=== PATIENT | male | born 1965 | race Caucasian/White ===

== ENCOUNTER 2016-09-11 23:50 | Emergency (ER) | payer BC, OTHER ==
[~2016-09-11] VITALS: Ht 172.7 cm; Wt 93.0 kg
[~2016-09-11 23:50] MED LIST: ACETAMINOPHEN325 M1 PO; BACTRIM DS TAB1 EACH PO; ERYTHROMYCIN E3.5 G1 OP; IBUPROFEN 200200 M1 PO; IBUPROFEN 600600 M1 PO; NOHOMEMEDICATIONS; NORCO 5-325 TA1 EACH PO; PHENERGAN 25 MG25 M1 PO; PREDNISONE 20 M20 MG PO; TYLENOL325 MG
[2016-09-12] MEDS ORDERED: NAPROSYN500 MG PO (00:26)
== END 2016-09-12 00:52 | disposition home or self-care (01) ==
LOC: ER 23:50
DX: M70.21 Olecranon bursitis, right elbow (principal); F10.99 Alcohol use, unspecified with unspecified alcohol-induced disorder; F17.210 Nicotine dependence, cigarettes, uncomplicated; Z98.890 Other specified postprocedural states; Z91.030 Bee allergy status; Y93.89 Activity, other specified

== ENCOUNTER 2016-11-08 22:44 | Emergency (ER) | payer BC, OTHER ==
[~2016-11-08] VITALS: Ht 172.7 cm; Wt 95.3 kg
[~2016-11-08 22:44] MED LIST changes: +NAPROSYN500 MG PO
[2016-11-09] MEDS ORDERED: MOBIC15 MG PO (00:10)
[2016-11-09] MEDS ORDERED: NORCO 5-325 TA1 EACH PO (00:10)
== END 2016-11-09 00:40 | disposition home or self-care (01) ==
LOC: ER 22:44
DX: S93.402A Sprain of unspecified ligament of left ankle, initial encounter (principal); F17.210 Nicotine dependence, cigarettes, uncomplicated; F10.99 Alcohol use, unspecified with unspecified alcohol-induced disorder; Z98.890 Other specified postprocedural states; Z91.030 Bee allergy status; W01.0XXA Fall on same level from slipping, tripping and stumbling without subsequent striking against object, initial encounter; Y93.89 Activity, other specified; Y92.89 Other specified places as the place of occurrence of the external cause; Y99.8 Other external cause status

== ENCOUNTER 2017-01-19 22:17 | Emergency (ER) | payer BC, OTHER ==
[~2017-01-19] VITALS: Ht 172.7 cm; Wt 92.1 kg
--- NOTE | ~2017-01-19 | EKG ---
[address] [address] ELECTROCARDIOGRAM REPORT Name: MAURILIO EM [facility] [id number] Admission: 01/19/17 Attend Phys: Discharge: 01/20/17 Date of : 65 Report #: [id number] THIS REPORT FOR: //name// [facility] ED Test Date: 2017-01-20 Test Time: 01:21:27 Pat Name: MAURILIO EM Department: Room: Gender: M Pharmacy Data Analyst: : 1965 Requested By: Eugene Cantu Order Number: [id number] MD: Elmer Hollins Measurements Intervals [place] Rate: 62 P: 28 [place]: 160 QRS: 22 QRSD: 84 T: 43 QT: 407 QTc: 414 Interpretive Statements Sinus rhythm Probable left atrial enlargement No previous ECG available for comparison Electronically Signed On 01-20-2017 15:20:39 CDT by Elmer Hollins [email or web address] <ELECTRONICALLY SIGNED> By: Elmer Hollins MD 01/20/17 1520 0121 0121 Elmer Hollins MD /SYLWIA
[~2017-01-19 22:17] MED LIST changes: +MOBIC15 MG PO
[2017-01-19 23:26] LABS: ABSOLUTE NEUTROPHILS 6.3 thou/uL (1.4-8.2); BASOPHILS 0.8 % (0.0-2.0); EOSINOPHILS 4.8 % (0.0-3.0); HEMATOCRIT 42.5 % (42.0-52.0); HEMOGLOBIN 14.6 gm/dL (14.0-18.0); LYMPHOCYTES 30.3 % (24.0-44.0); MCHC 34.3 g/dL (28.0-37.0); MCV 87.6 fL (80.0-100.0); MONOCYTES 6.1 % (1.0-8.0); PLATELET COUNT 194 thou/uL (150-400); RBC 4.85 mil/uL (4.50-6.00); RDW 13.9 % (10.5-14.5); WBC 10.8 thou/uL (4.0-11.0)
[2017-01-19 23:31] LABS: ANION GAP 9 mmol/L (7-16); BUN 7 mg/dL (7-18); CALCIUM 8.6 mg/dL (8.5-10.1); CHLORIDE 104 mmol/L (98-107); CO2 27 mmol/L (21-32); CREATININE 0.9 mg/dL (0.7-1.3); GLUCOSE 106 mg/dL (74-106); POTASSIUM 3.7 mmol/L (3.5-5.1); SODIUM 140 mmol/L (136-145)
[2017-01-19 23:35] LABS: MANUAL DIFF NO
[2017-01-19 23:40] LABS: ALBUMIN 2.9 g/dL (3.4-5.0); ALKALINE PHOSPHATASE 62 U/L (46-116); SGOT 15 U/L (15-37); SGPT 18 U/L (30-65); TOTAL BILIRUBIN 0.3 mg/dL (<0.1-1.0); TOTAL PROTEIN 5.7 g/dL (6.4-8.2); TROPONIN-I < 0.04 ng/mL (<0.04-0.07)
[2017-01-20] MEDS ORDERED: ZOFRAN ODT8 MG PO (01:02)
[2017-01-20] MEDS ORDERED: TRAMADOL 50 MG50 MG PO (01:02)
[2017-01-20] MEDS ORDERED: PRILOSEC 20 MG20 MG PO (01:17)
[2017-01-20 01:29] LABS: URINE BILIRUBIN NEGATIVE (Negative); URINE BLOOD 2+ (Negative); URINE COLOR YELLOW; URINE GLUCOSE-RANDOM* NEGATIVE (Negative); URINE KETONES NEGATIVE (Negative); URINE LEUKOCYTES-REFLEX NEGATIVE (Negative); URINE PROTEIN (DIPSTICK) NEGATIVE (Negative)
[2017-01-20 02:00] LABS: CASTS None Seen /LPF (None Seen); CRYSTALS None Seen /LPF (None Seen); SQUAMOUS None Seen /LPF (0-3); URINE RBC 0-2 Rare /HPF (0-2); URINE WBC-REFLEX None Seen /HPF (0-5)
== END 2017-01-20 01:48 | disposition home or self-care (01) ==
LOC: ER 22:17
PROVIDERS: Emergency Medicine
DX: N20.0 Calculus of kidney (principal); R91.1 Solitary pulmonary nodule; R19.7 Diarrhea, unspecified; F17.210 Nicotine dependence, cigarettes, uncomplicated; F10.99 Alcohol use, unspecified with unspecified alcohol-induced disorder; Z98.890 Other specified postprocedural states; Z91.030 Bee allergy status

== ENCOUNTER 2017-06-23 19:51 | Emergency (ER) | payer BC, OTHER ==
[~2017-06-23] VITALS: Ht 172.7 cm; Wt 74.5 kg
[~2017-06-23 19:51] MED LIST changes: +PRILOSEC 20 MG20 MG PO; +TRAMADOL 50 MG50 MG PO; +ZOFRAN ODT8 MG PO
[2017-06-23] MEDS ORDERED: FOLIC ACID1 MG PO (20:20)
[2017-06-23] MEDS ORDERED: METHOTREXATE 22.5 MG PO (20:20)
[2017-06-23] MEDS ORDERED: PREDNISONE 10 M10 MG PO (20:21)
[2017-06-23] MEDS ORDERED: VITAMIN B-12500 MCG PO (20:21)
[2017-06-23] MEDS ORDERED: NEURONTIN 300300 M1 PO (20:21)
[2017-06-23 20:56] LABS: ABSOLUTE NEUTROPHILS 8.7 thou/uL (1.4-8.2); BASOPHILS 0.3 % (0.0-2.0); EOSINOPHILS 0.1 % (0.0-3.0); HEMATOCRIT 46.1 % (42.0-52.0); LYMPHOCYTES 12.8 % (24.0-44.0); MCHC 34.7 g/dL (28.0-37.0); MCV 89.5 fL (80.0-100.0); MONOCYTES 5.1 % (1.0-8.0); PLATELET COUNT 246 thou/uL (150-400); POLYS 81.7 % (36.0-66.0); RBC 5.14 mil/uL (4.50-6.00); RDW 13.8 % (10.5-14.5); WBC 10.6 thou/uL (4.0-11.0)
[2017-06-23 20:57] LABS: URINE BILIRUBIN NEGATIVE (Negative); URINE BLOOD 3+ (Negative); URINE CLARITY CLEAR; URINE GLUCOSE-RANDOM* NEGATIVE (Negative); URINE KETONES NEGATIVE (Negative); URINE LEUKOCYTES-REFLEX NEGATIVE (Negative); URINE NITRITE-REFLEX NEGATIVE (Negative); URINE PROTEIN (DIPSTICK) NEGATIVE (Negative); URINE SPECIFIC GRAVITY <= 1.005 (1.005-1.035); URINE UROBILINOGEN 0.2 E.U./dl (0.2-1.0)
[2017-06-23 21:00] LABS: ANION GAP 8 mmol/L (7-16); BUN 10 mg/dL (7-18); CALCIUM 9.2 mg/dL (8.5-10.1); CHLORIDE 103 mmol/L (98-107); CO2 25 mmol/L (21-32); CREATININE 0.8 mg/dL (0.7-1.3); GLUCOSE 93 mg/dL (74-106); POTASSIUM 4.4 mmol/L (3.5-5.1); SODIUM 136 mmol/L (136-145)
[2017-06-23 21:03] LABS: URINE COLOR STRAW
[2017-06-23 21:06] LABS: ALBUMIN 3.7 g/dL (3.4-5.0); DIRECT BILIRUBIN 0.1 mg/dL (<0.1-0.3); LIPASE 185 U/L (73-393); SGOT 29 U/L (15-37); TOTAL BILIRUBIN 0.6 mg/dL (<0.1-1.0); TOTAL PROTEIN 6.9 g/dL (6.4-8.2)
[2017-06-23 21:09] LABS: BACTERIA-REFLEX None Seen /HPF (None Seen); CASTS None Seen /LPF (None Seen); CRYSTALS None Seen /LPF (None Seen); SQUAMOUS None Seen /LPF (0-3); URINE RBC 0-2 Rare /HPF (0-2); URINE WBC-REFLEX 0-5 Rare /HPF (0-5)
[2017-06-23 21:09] LABS: SGPT < 6 U/L (30-65)
[2017-06-23] MEDS ORDERED: NORCO 5-325 TA1 EACH PO (21:58)
[2017-06-23 23:03] VITALS: BP 136/74
== END 2017-06-23 23:12 | disposition home or self-care (01) ==
LOC: ER 19:51
PROVIDERS: Emergency Medicine
DX: N20.0 Calculus of kidney (principal); F17.210 Nicotine dependence, cigarettes, uncomplicated; F10.99 Alcohol use, unspecified with unspecified alcohol-induced disorder; Z91.030 Bee allergy status

== ENCOUNTER 2017-07-04 20:14 | Emergency (ER) | payer BC, OTHER ==
[~2017-07-04] VITALS: Ht 172.7 cm; Wt 74.4 kg
[~2017-07-04 20:14] MED LIST changes: +FOLIC ACID1 MG PO; +METHOTREXATE 22.5 MG PO; +NEURONTIN 300300 M1 PO; +PREDNISONE 10 M10 MG PO; +VITAMIN B-12500 MCG PO
[2017-07-04 20:43] LABS: URINE BILIRUBIN 1+ (Negative); URINE BLOOD 3+ (Negative); URINE CLARITY CLOUDY; URINE COLOR BROWN; URINE GLUCOSE-RANDOM* NEGATIVE (Negative); URINE KETONES NEGATIVE (Negative); URINE NITRITE-REFLEX NEGATIVE (Negative); URINE PROTEIN (DIPSTICK) 2+ (Negative); URINE SPECIFIC GRAVITY 1.025 (1.005-1.035); URINE UROBILINOGEN 0.2 E.U./dl (0.2-1.0)
[2017-07-04 20:46] LABS: URINE LEUKOCYTES-REFLEX TRACE (Negative)
[2017-07-04 20:47] LABS: ICTOTEST (BILI CONFIRMATORY) Negative (Negative)
[2017-07-04 20:56] LABS: CASTS None Seen /LPF (None Seen); CRYSTALS None Seen /LPF (None Seen); SQUAMOUS 0-3 Few /LPF (0-3); URINE RBC >20 Many /HPF (0-2)
[2017-07-04 20:57] LABS: BACTERIA-REFLEX 1-9 Few /HPF (None Seen); URINE WBC-REFLEX 0-5 Rare /HPF (0-5)
[2017-07-04] MEDS ORDERED: HYDROCODONE-AP1 EAC6 PO (21:06)
[2017-07-04] MEDS ORDERED: KEFLEX500 M1 PO (21:06)
== END 2017-07-04 21:37 | disposition home or self-care (01) ==
LOC: ER 20:14
PROVIDERS: Nurse Practitioner Family
DX: N20.0 Calculus of kidney (principal); Z76.0 Encounter for issue of repeat prescription; M54.31 Sciatica, right side; F17.210 Nicotine dependence, cigarettes, uncomplicated; Z98.890 Other specified postprocedural states; Z91.030 Bee allergy status

== ENCOUNTER 2017-07-07 19:10 | Inpatient (IN) | payer BC, OTHER ==
[~2017-07-07] VITALS: Ht 172.7 cm; Wt 73.0 kg
--- NOTE | ~2017-07-07 | O ---
[facility] [place] [address] OPERATIVE REPORT Name: MAURILIO EM Room #: 426-P ADM IN M.R.#: [id number] Admission: 07/07/17 Attend Phys: Richard Stallworth DO Discharge: Date of : 65 Report #: [id number] THIS REPORT FOR: //name// CC: [facility] physician/PCP Richard Stallworth PREOPERATIVE DIAGNOSIS: Right renal calculus, possible right ureteral calculus. POSTOPERATIVE DIAGNOSIS: Right renal calculus. PROCEDURE: Cystoscopy, right retrograde pyelogram, right ureteroscopy with holmium laser ablation of right renal calculus with retrieval of fragments and placement of indwelling stent. SURGEON: John Skaggs M.D. ANESTHESIA: General. INDICATIONS: The patient is a 51-year-old transgender male who presented with right lower quadrant and right flank pain. Serial films have raised the question of a 9 mm stone in the right kidney and/or proximal ureter which may be changing location to be periodically obstructing. He had calcifications on CT scan which were difficult to determine whether or not there in the ureter. Dr. Dillon placed a stent and his pain did not improve; however, he was not certain that there was indeed a stone in the ureter, but certainly could not say that there was not one. Given his persistent pain, he is to undergo endoscopic management. Risks, benefits, complications have been discussed, risk of injury to kidney and/or ureters requiring immediate or delayed open surgery have been discussed. Issues related to stent placement and stent removal have been discussed. Issues related to surgery including deep venous thrombosis, pulmonary embolism, heart attack, stroke and were discussed. He understands, I cannot predict all potential complications. SURGICAL PROCEDURE: After obtaining informed consent, he was brought to the operating room and general anesthetic was administered. He was prepped and draped in lithotomy position. Preliminary film showed a lot of stool in the colon. There was opacification overlying the right lower pole of the kidney consistent with a known right renal calculus there. I saw no stones along the course of the stent, which was properly positioned. After a timeout was performed and IV antibiotics were administered, I introduced the 21-Maldivian ACMI cystoscope. The anterior urethra was normal. Prostatic urethra was short and nonobstructive. Upon entering the bladder, the bladder was smooth walled. No intrinsic mucosal lesions. Trigone and ureters were normal in configuration and location. I placed a 0.35 Glidewire into the right ureter and I grasped the stent and removed it. I then went ahead and placed a second wire. Along both wires, I introduced a 6.9-Maldivian semirigid ureteroscope, I was able to examine the entire ureter all the way up to the UPJ. There were no stones within the [facility] [address] [place] [address] OPERATIVE REPORT Name: MAURILIO EM Room #: 426-P [facility] IN M.R.#: [id number] Admission: 07/07/17 Attend Phys: Richard Stallworth DO Discharge: Date of : 65 Report #: [id number] ureter. The ureter was pristine. I then placed a 12 x 14-Maldivian 35 cm access sheath and placed the digital ureteroscope into the renal pelvis. I injected contrast to outline the renal pelvis. I inspected the upper, mid and lower pole calices within a bifid lower pole, I encountered the stone. I discussed treating this if indeed we had access to it. Since there was accessed, I used the 200 micron laser fiber to break the stone into innumerable fragments, most of which I retrieved with the 1.9 Maldivian nitinol basket. Any fragments in the left indwelling were no larger than dust. I examined the entire kidney, there were no significant fragments whatsoever. Then I reexamined the ureter as I withdrew the ureteroscope, again finding no stones. I then backloaded the remaining wire through the cystoscope and placed a 6-Maldivian x 26 cm contour stent, proximal curls overlying the right renal shadow with distal curls in the bladder. The stone fragments were sent for analysis. He was then transferred to the recovery room. I do want to make a note that I did visit with him preoperatively. He was experiencing right lower quadrant and right hip pain, which I think was unrelated to his kidney stone. We did discuss this. He did reach the recovery room in stable condition. By: 1236 1313 John Skaggs MD /nt
--- NOTE | ~2017-07-07 | O ---
[facility] [place] [address] OPERATIVE REPORT Name: MAURILIO EM Room #: 426-P ADM IN M.R.#: [id number] Admission: 07/07/17 Attend Phys: Richard Stallworth DO Discharge: Date of : 65 Report #: [id number] THIS REPORT FOR: //name// CC: [facility] physician/PCP Richard Stallworth DATE OF SERVICE: 07/08/2017 PREOPERATIVE DIAGNOSIS: Right ureteral and renal calculi with hydronephrosis and pain. POSTOPERATIVE DIAGNOSIS: Right ureteral and renal calculi with hydronephrosis and pain. ATTENDING PHYSICIAN: Dr. Dillon. ALLERGIES: None. ANESTHESIA: General. FLUIDS: Please see anesthesia note. BLOOD LOSS: None. COMPLICATIONS: None. POSTPROCEDURE STATUS: Stable. SPECIMEN: None. SURGERY: 1. Cystoscopy. 2. Right retrograde pyelogram. 3. Right ureteral stent placement, 6 x 26 Libyan. FINDINGS: The patient had a visible radiopaque density in the mid ureter as well as in the kidney on the right side under fluoroscopy bath mix operator film. OPERATIVE NOTE IN DETAIL: After informed consent, the patient was brought to the operating room and placed in the dorsal lithotomy position, prepped and draped in a sterile fashion, was given general endotracheal anesthesia as well as preoperative antibiotics. Under bath mix operator fluoroscopy, a radiopaque density could be seen at the level of the mid ureter on the right side as well as overlying the renal shadow in the [id number] pole. A 21-Libyan scope with 30-degree lens was carefully placed in the patient's meatus and glided in the bladder. The prostate was nonobstructing. The bladder was inspected and found [facility] [address] [place] [address] OPERATIVE REPORT Name: MAURILIO EM Room #: 426-P [facility] IN .R.#: [id number] Admission: 07/07/17 Attend Phys: Richard Stallworth DO Discharge: Date of : 65 Report #: [id number] to be free of tumor, stones or lesions. Both ureteral orifices were in their orthotopic positions. The right ureteral orifice was cannulated with a 5 Libyan illuminating catheter. Retrograde pyelogram was performed showing a filling defect in the mid ureter with very mild amount of hydroureter and hydronephrosis. A flexible guidewire was placed through the open-ended catheter, it got hung up at the mid ureter around the level of the stone, but eventually I was able to maneuver past this area and up into the kidney. A 6 x 26 Libyan stent was advanced over the wire. A good curl was seen in the kidney on the right side. The stent was deployed and a good curl was seen in the bladder. The bladder was drained. The patient was then awoken and transferred to the recovery room in a stable condition. All counts were correct. There were no complications. The patient tolerated the procedure well. <ELECTRONICALLY SIGNED> By: Say Dillon MD 07/08/17 1436 1301 1330 Say Dillon MD /nt
[~2017-07-07 19:10] MED LIST changes: +HYDROCODONE-AP1 EAC6 PO; +KEFLEX500 M1 PO
[2017-07-07 19:40] VITALS: BP 105/69
[2017-07-07 19:46] LABS: URINE BILIRUBIN NEGATIVE (Negative); URINE BLOOD 3+ (Negative); URINE CLARITY CLEAR; URINE COLOR YELLOW; URINE GLUCOSE-RANDOM* NEGATIVE (Negative); URINE KETONES NEGATIVE (Negative); URINE LEUKOCYTES TRACE (Negative); URINE NITRITE NEGATIVE (Negative); URINE PROTEIN (DIPSTICK) TRACE (Negative); URINE UROBILINOGEN 0.2 E.U./dl (0.2-1.0)
[2017-07-07 19:54] LABS: SQUAMOUS None Seen /LPF (0-3)
[2017-07-07 19:55] LABS: YEAST Present (None Seen)
[2017-07-07 19:56] LABS: CASTS None Seen /LPF (None Seen); CRYSTALS None Seen /LPF (None Seen)
[2017-07-07 19:57] LABS: URINE RBC >20 Many /HPF (0-2); URINE WBC 0-5 Rare /HPF (0-5)
[2017-07-07 19:58] LABS: BACTERIA 1-9 Few /HPF (None Seen)
[2017-07-07 20:00] LABS: ABSOLUTE NEUTROPHILS 8.7 thou/uL (1.4-8.2); BASOPHILS 0.2 % (0.0-2.0); EOSINOPHILS 0.1 % (0.0-3.0); HEMATOCRIT 43.1 % (42.0-52.0); HEMOGLOBIN 14.7 gm/dL (14.0-18.0); LYMPHOCYTES 11.2 % (24.0-44.0); MCH 30.9 pg (26.0-34.0); MONOCYTES 3.8 % (1.0-8.0); PLATELET COUNT 166 thou/uL (150-400); POLYS 84.7 % (36.0-66.0); RBC 4.74 mil/uL (4.50-6.00); RDW 14.7 % (10.5-14.5); WBC 10.3 thou/uL (4.0-11.0)
[2017-07-07 20:03] LABS: CALCIUM 8.7 mg/dL (8.5-10.1); CREATININE 0.7 mg/dL (0.7-1.3)
[2017-07-07 20:09] LABS: ALBUMIN 3.2 g/dL (3.4-5.0); TOTAL BILIRUBIN 0.5 mg/dL (<0.1-1.0); TOTAL PROTEIN 6.2 g/dL (6.4-8.2)
[2017-07-07 21:44] VITALS: BP 88/73
[2017-07-07 22:30] VITALS: BP 112/72
[2017-07-08 03:30] LABS: CALCIUM 8.6 mg/dL (8.5-10.1); CREATININE 0.8 mg/dL (0.7-1.3); POTASSIUM 4.4 mmol/L (3.5-5.1)
[2017-07-08 04:02] LABS: HEMATOCRIT 39.1 % (42.0-52.0); HEMOGLOBIN 13.2 gm/dL (14.0-18.0); MCH 30.9 pg (26.0-34.0); MCHC 33.8 g/dL (28.0-37.0); MCV 91.4 fL (80.0-100.0); RBC 4.28 mil/uL (4.50-6.00); RDW 14.9 % (10.5-14.5); WBC 10.3 thou/uL (4.0-11.0)
[2017-07-08 20:00] VITALS: BP 109/68
[2017-07-09 04:30] VITALS: BP 114/74
[2017-07-09 06:02] LABS: ABSOLUTE NEUTROPHILS 9.8 thou/uL (1.4-8.2); BASOPHILS 0.2 % (0.0-2.0); HEMATOCRIT 39.6 % (42.0-52.0); HEMOGLOBIN 13.3 gm/dL (14.0-18.0); LYMPHOCYTES 7.8 % (24.0-44.0); MCH 30.7 pg (26.0-34.0); MCHC 33.5 g/dL (28.0-37.0); MCV 91.6 fL (80.0-100.0); MONOCYTES 4.3 % (1.0-8.0); PLATELET COUNT 168 thou/uL (150-400); POLYS 87.7 % (36.0-66.0); RBC 4.32 mil/uL (4.50-6.00); RDW 14.6 % (10.5-14.5); WBC 11.2 thou/uL (4.0-11.0)
[2017-07-09 06:14] LABS: CALCIUM 8.7 mg/dL (8.5-10.1); CREATININE 0.8 mg/dL (0.7-1.3); POTASSIUM 4.6 mmol/L (3.5-5.1)
[2017-07-09 07:10] VITALS: BP 117/79
[2017-07-09 15:15] VITALS: BP 128/81
[2017-07-09 19:14] VITALS: BP 118/75
[2017-07-10 04:57] VITALS: BP 120/75
[2017-07-10 07:05] VITALS: BP 116/77
[2017-07-10 15:10] VITALS: BP 118/75
[2017-07-10 21:25] VITALS: BP 123/73
[2017-07-11 03:51] VITALS: BP 113/77
[2017-07-11 05:54] LABS: ABSOLUTE NEUTROPHILS 9.2 thou/uL (1.4-8.2); BASOPHILS 0.3 % (0.0-2.0); EOSINOPHILS 0.2 % (0.0-3.0); HEMATOCRIT 41.4 % (42.0-52.0); HEMOGLOBIN 13.9 gm/dL (14.0-18.0); LYMPHOCYTES 15.9 % (24.0-44.0); MCH 30.9 pg (26.0-34.0); MCHC 33.7 g/dL (28.0-37.0); MCV 91.6 fL (80.0-100.0); MONOCYTES 4.7 % (1.0-8.0); PLATELET COUNT 175 thou/uL (150-400); POLYS 78.9 % (36.0-66.0); RBC 4.51 mil/uL (4.50-6.00); RDW 14.7 % (10.5-14.5); WBC 11.6 thou/uL (4.0-11.0)
[2017-07-11 06:14] LABS: CALCIUM 8.7 mg/dL (8.5-10.1); CREATININE 0.7 mg/dL (0.7-1.3); POTASSIUM 4.5 mmol/L (3.5-5.1)
[2017-07-11 07:01] VITALS: BP 122/79
[2017-07-11 10:31] VITALS: BP 116/60
[2017-07-11 20:00] VITALS: BP 116/66
[2017-07-12 04:30] VITALS: BP 106/67
[2017-07-12 08:12] VITALS: BP 102/70
[2017-07-12] MEDS ORDERED: PERCOCET 7.5-31 EACH PO (09:10)
[2017-07-12 10:16] VITALS: BP 102/70
== END 2017-07-12 15:20 | disposition home or self-care (01) | DRG 660 ==
LOC: ER 19:10 → EROBS 20:50 → 4E 20:50
PROVIDERS: Family Medicine; Nurse Practitioner Family; Urology
PROC: 0T768DZ Dilation of Right Ureter with Intraluminal Device, Via Natural or Artificial Opening Endoscopic (ICD-10-PCS; principal; 2017-07-08)
PROC: 0TC68ZZ Extirpation of Matter from Right Ureter, Via Natural or Artificial Opening Endoscopic (ICD-10-PCS; 2017-07-08)
PROC: BT1D1ZZ Fluoroscopy of Right Kidney, Ureter and Bladder using Low Osmolar Contrast (ICD-10-PCS; 2017-07-08)
PROC: 0T5 Urinary System, Destruction (ICD-10-PCS; 2017-07-11)
DX: N13.2 Hydronephrosis with renal and ureteral calculous obstruction (principal); M06.9 Rheumatoid arthritis, unspecified; M54.30 Sciatica, unspecified side; F17.210 Nicotine dependence, cigarettes, uncomplicated; N39.0 Urinary tract infection, site not specified; B96.89 Other specified bacterial agents as the cause of diseases classified elsewhere; K59.00 Constipation, unspecified; G62.9 Polyneuropathy, unspecified; Z91.030 Bee allergy status
CPT/HCPCS: 10084; 50010; 50101; 50164; 50445; 51620; 51767; 53331; 56674; 56815; 62110; 62900; 70005

== ENCOUNTER 2017-07-19 20:34 | Observation (INO) | payer BC, OTHER ==
[~2017-07-19] VITALS: Ht 172.7 cm; Wt 72.9 kg
--- NOTE | ~2017-07-19 | HC ---
[facility] [place] [address] CONSULTATION Name: MAURILIO EM Room #: 417-I [facility] M.RValentin#: [id number] Admission: 07/19/17 Attend Phys: Eric Raza MD Discharge: Date of : 65 Report #: [id number] THIS REPORT FOR: //name// CC: [facility] physician/PCP Eric Raza DATE OF SERVICE: 07/20/2017 REASON FOR CONSULTATION: Chest pain. HISTORY OF PRESENT ILLNESS: The patient is a 51-year-old male who is a transgender. History of rheumatoid arthritis, neuropathy and recently discharged here after having nephrolithiasis and had a ureteral stent placed. The last night, he started having chest pain that is worse with inspiration, movement and taking a deep breath. He denies any palpitations. He has had some lightheadedness. He has had no syncope. He denies any PND or orthopnea. REVIEW OF SYSTEMS: A 12-point review of systems was performed and was negative other than what I mentioned above. PAST MEDICAL HISTORY: As mentioned above. SOCIAL HISTORY: He does smoke cigarettes. FAMILY HISTORY: Noncontributory. ALLERGIES: No known drug allergies. MEDICATIONS: Have been reviewed. PHYSICAL EXAMINATION: VITAL SIGNS: Temperature is 37.1, pulse 64, respirations 18, blood pressure 92/60, sats are 97%. GENERAL: He is somewhat anxious male, but in no acute distress. HEENT: Oropharynx is clear. Sclerae anicteric. NECK: Supple, with no thyromegaly. HEART: Regular rate and rhythm with no murmurs, rubs, gallops. LUNGS: Clear to auscultation bilaterally. ABDOMEN: Soft, nontender, nondistended with no hepatosplenomegaly. EXTREMITIES: There is no clubbing, cyanosis, or edema. When I push over his left chest, the patient screams in pain. This appears to be the source of his discomfort. LABORATORY DATA: White count 10.7, hemoglobin 13.6, platelets 237. Sodium 141, potassium 3.8, BUN 28, creatinine 1.1, glucose 179. Troponins are all normal. His 12-lead EKG, I reviewed, shows normal sinus rhythm with no ischemic changes. [facility] [address] [place] [address] CONSULTATION Name: MAURILIO EMZABETH Room #: 417-I [facility] Edison Flores#: [id number] Admission: 07/19/17 Attend Phys: Eric Raza MD Discharge: Date of : 65 Report #: [id number] IMPRESSION: In summary, the patient is a 51-year-old presenting with chest pain that is noncardiac in nature. This may be secondary to costochondritis. I will recommend treating this as such. We will check an echo to ensure normal LV size and function. We will also check a D-dimer to ensure that this is within normal limits. If this were to be abnormal, I would consider ruling out a pulmonary embolism, which can sometimes cause pleuritic type pains. By: 1311 1834 Elmer Hollins MD /nt
--- NOTE | ~2017-07-19 | EKG ---
[address] [place] [address] ELECTROCARDIOGRAM REPORT Name: MANAVMAURILIOINES LEZAMA Room #: 417-I [facility]..#: [id number] Admission: 07/19/17 Attend Phys: Eric Raza MD Discharge: Date of : 65 Report #: [id number] THIS REPORT FOR: //name// [facility] ED Test Date: 2017-07-19 Test Time: 20:52:51 Pat Name: MAURILIO EM Department: Room: [facility] Gender: M Junior Account Manager: [facility] : 1965 Requested By: Eugene Cantu Order Number: [id number] MD: Reji Ya Measurements Intervals [place] Rate: 80 P: 24 [place]: 130 QRS: 27 QRSD: 84 T: 46 QT: 352 QTc: 406 Interpretive Statements Sinus rhythm Probable left atrial enlargement ST elev, probable normal early repol pattern Compared to ECG 01/20/2017 01:21:27 No significant change was found Electronically Signed On 07-20-2017 8:26:17 CDT by Reji Ya [email or web address] <ELECTRONICALLY SIGNED> By: Reji Ya MD, [facility] 07/20/17825 51 51 Reji Ya MD, [facility] /EPI
--- NOTE | ~2017-07-19 | 2DMMODE ---
[facility] [address] [place] [address] 2 D/M-MODE ECHOCARDIOGRAM Name: MAURILIO EM Room #: 417-I ADM IN M.R.#: [id number] Admission: 07/19/17 Attend Phys: Eric Raza MD Discharge: Date of : 65 Date of Service: 07/20/17 1311 Report #: [id number] THIS REPORT FOR: //name// APPROVED REPORT Study performed: 07/20/2017 11:48:03 EXAM: Comprehensive 2D, Doppler, and color-flow Echocardiogram Patient Location: Bedside Room #: [facility] Status: routine BSA: 1.84 HR: 53 bpm BP: 119/80 mmHg Other Information Study Quality: Adequate Indications Chest Pain 2D Dimensions RVDd: 31.33 mm LVEF(%): 59.87 (>50%) IVSd: 8.86 (7-11mm) LVOT Diam: 23.97 (18-24mm) LVDd: 51.63 mm PWd: 9.29 (7-11mm) Ascending Ao: 36.34 (22-36mm) LVDs: 35.07 (25-40mm) Aortic Root: 39.20 mm IVC: 31.00 mm Duenas's LVEF: 59.87 % Volumes Left Atrial Volume (Systole) Single Plane 4CH: 43.17 mL Single Plane 2CH: 45.85 mL LA ESV Index: 29.00 mL/m2 Aortic Valve AoV Peak Chiki.: 1.14 m/s AO Peak Gr.: 5.20 mmHg LVOT Max P.40 mmHg LVOT Max V: 0.92 m/s FARAZ Vmax: 3.65 cm2 Mitral Valve E/A Ratio: 1.7 MV Decel. Time: 183.67 ms MV E Max Chiki.: 0.90 m/s [facility] [place] [address] 2 D/M-MODE ECHOCARDIOGRAM Name: MAURILIO EM Room #: 417-I [facility] IN .R.#: [id number] Admission: 07/19/17 Attend Phys: Eric Raza MD Discharge: Date of : 65 Date of Service: 07/20/17 1311 Report #: [id number] MV A Chiki.: 0.54 m/s MV PHT: 53.27 ms IVRT: 96.89 ms Pulmonary Valve PV Peak Chiki.: 0.95 m/s PV Peak Gr.: 3.60 mmHg Pulmonary Vein P Vein S: 0.44 m/s P Vein A: 0.27 m/s P Vein D: 0.53 m/s P Vein A Dur.: 129.2 msec P Vein S/D Ratio: 0.83 Tricuspid Valve TR Peak Chiki.: 2.39 m/s TR Peak Gr.: 22.88 mmHg PA Pressure: 33.00 mmHg Left Ventricle The left ventricle is normal size. There is normal left ventricular wall thickness. The left ventricular systolic function is normal. The left ventricular ejection fraction is within the normal range. LVEF is 55-60%. The left ventricular diastolic function is normal. Right Ventricle The right ventricle is normal size. The right ventricular systolic function is normal. Atria The left atrium size is normal. Right atrium is borderline dilated. Aortic Valve The aortic valve is normal in structure. No aortic regurgitation is present. There is no aortic valvular stenosis. Mitral Valve The mitral valve is normal in structure. There is no mitral valve regurgitation noted. No evidence of mitral valve stenosis. Tricuspid Valve The tricuspid valve is normal in structure. There is mild tricuspid regurgitation. Estimated PAP 33 mmHg. There is mild pulmonary hypertension. Pulmonic Valve The pulmonary valve is normal in structure. [place] [address] 2 D/M-MODE ECHOCARDIOGRAM Name: MAURILIO EM Room #: 417-I ADM IN [facility].#: [id number] Admission: 07/19/17 Attend Phys: Eric Raza MD Discharge: Date of : 65 Date of Service: 07/20/17 1311 Report #: [id number] valvular regurgitation. Great Vessels The aortic root is normal in size. IVC is dilated and collapses <50% with inspiration. Pericardium There is no pericardial effusion. <Conclusion> The left ventricle is normal size. LVEF is 55-60%. Right atrium is borderline dilated. The right ventricular systolic function is normal. The right ventricle is normal size. The aortic valve is normal in structure. The mitral valve is normal in structure. The tricuspid valve is normal in structure. There is mild tricuspid regurgitation. Estimated PAP 33 mmHg. There is mild pulmonary hypertension. The pulmonary valve is normal in structure. There is no pericardial effusion. <ELECTRONICALLY SIGNED> By: Getachew Scales MD 07/20/17 131 131 10 Getachew Scales MD /INF
[~2017-07-19 20:34] MED LIST changes: +PERCOCET 7.5-31 EACH PO
[2017-07-19 20:40] VITALS: BP 104/70
[2017-07-19 20:59] LABS: ABSOLUTE NEUTROPHILS 10.7 thou/uL (1.4-8.2); BASOPHILS 0.9 % (0.0-2.0); EOSINOPHILS 0.2 % (0.0-3.0); HEMATOCRIT 42.5 % (42.0-52.0); HEMOGLOBIN 14.5 gm/dL (14.0-18.0); LYMPHOCYTES 20.7 % (24.0-44.0); MCH 30.9 pg (26.0-34.0); MCHC 34.1 g/dL (28.0-37.0); MCV 90.5 fL (80.0-100.0); MONOCYTES 6.9 % (1.0-8.0); PLATELET COUNT 255 thou/uL (150-400); POLYS 71.3 % (36.0-66.0); RBC 4.69 mil/uL (4.50-6.00); RDW 14.7 % (10.5-14.5); WBC 15.1 thou/uL (4.0-11.0)
[2017-07-19 21:08] LABS: ANION GAP 6 mmol/L (7-16); BUN 22 mg/dL (7-18); CALCIUM 9.5 mg/dL (8.5-10.1); CHLORIDE 104 mmol/L (98-107); CO2 28 mmol/L (21-32); CREATININE 1.1 mg/dL (0.7-1.3); GLUCOSE 95 mg/dL (74-106); POTASSIUM 3.8 mmol/L (3.5-5.1); SODIUM 138 mmol/L (136-145)
[2017-07-19] MEDS ORDERED: OXYBUTYNIN 5 MG5 M2 PO (21:14)
[2017-07-19] MEDS ORDERED: EVISTA60 MG PO (21:15)
[2017-07-19 21:17] LABS: ALBUMIN 3.3 g/dL (3.4-5.0); LIPASE 141 U/L (73-393); MAGNESIUM 2.2 mg/dL (1.8-2.4); SGOT 16 U/L (15-37); SGPT 33 U/L (30-65); TOTAL BILIRUBIN 0.5 mg/dL (<0.1-1.0); TOTAL PROTEIN 6.4 g/dL (6.4-8.2); TROPONIN-I < 0.04 ng/mL (<0.06)
[2017-07-19] MEDS ORDERED: COZAAR 50 MG TA50 M2 PO (21:19)
[2017-07-19] MEDS ORDERED: MOBIC15 MG PO (21:19)
[2017-07-19] MEDS ORDERED: ZOLOFT25 MG PO (21:21)
[2017-07-19 23:04] VITALS: BP 106/69
[2017-07-19 23:35] VITALS: BP 117/76
[2017-07-20 02:57] LABS: HEMATOCRIT 39.8 % (42.0-52.0); HEMOGLOBIN 13.6 gm/dL (14.0-18.0); MCH 31.2 pg (26.0-34.0); MCHC 34.2 g/dL (28.0-37.0); MCV 91.4 fL (80.0-100.0); RBC 4.35 mil/uL (4.50-6.00); RDW 15.1 % (10.5-14.5); WBC 10.7 thou/uL (4.0-11.0)
[2017-07-20 03:14] LABS: ANION GAP 9 mmol/L (7-16); BUN 28 mg/dL (7-18); CALCIUM 8.9 mg/dL (8.5-10.1); CHLORIDE 106 mmol/L (98-107); CO2 26 mmol/L (21-32); CREATININE 1.1 mg/dL (0.7-1.3); GLUCOSE 179 mg/dL (74-106); POTASSIUM 3.8 mmol/L (3.5-5.1); SODIUM 141 mmol/L (136-145); TROPONIN-I < 0.04 ng/mL (<0.06)
[2017-07-20 04:00] VITALS: BP 119/80
[2017-07-20 07:00] VITALS: BP 92/60
[2017-07-20 07:01] VITALS: BP 165/77
[2017-07-20 15:00] VITALS: BP 105/65
[2017-07-20 16:45] LABS: URINE BILIRUBIN NEGATIVE (Negative); URINE BLOOD 3+ (Negative); URINE CLARITY CLEAR; URINE COLOR YELLOW; URINE GLUCOSE-RANDOM* NEGATIVE (Negative); URINE KETONES NEGATIVE (Negative); URINE LEUKOCYTES-REFLEX 2+ (Negative); URINE NITRITE-REFLEX NEGATIVE (Negative); URINE PROTEIN (DIPSTICK) TRACE (Negative); URINE SPECIFIC GRAVITY 1.015 (1.005-1.035); URINE UROBILINOGEN 0.2 E.U./dl (0.2-1.0)
[2017-07-20 17:00] LABS: AMORPHOUS URATES Few /LPF (None Seen); BACTERIA-REFLEX None Seen /HPF (None Seen); CASTS None Seen /LPF (None Seen); SQUAMOUS 0-3 Few /LPF (0-3); URINE RBC >20 Many /HPF (0-2); URINE WBC-REFLEX 6-15 Few /HPF (0-5)
[2017-07-20 20:17] VITALS: BP 106/61
[2017-07-21 03:09] VITALS: BP 115/67
[2017-07-21 03:15] VITALS: BP 105/69
[2017-07-21 04:49] VITALS: BP 103/63
[2017-07-21 05:39] VITALS: BP 168/99
[2017-07-21 11:00] VITALS: BP 168/99
[2017-07-21] MEDS ORDERED: PROTONIX40 M1 PO (14:35)
== END 2017-07-21 14:50 | disposition home or self-care (01) ==
LOC: ER 20:34 → 4E 21:49 → EROBS 21:49 → 4E 23:07
PROVIDERS: Emergency Medicine; Nurse Practitioner Family
DX: R07.89 Other chest pain (principal); M06.9 Rheumatoid arthritis, unspecified; K21.9 Gastro-esophageal reflux disease without esophagitis; G62.9 Polyneuropathy, unspecified; F17.210 Nicotine dependence, cigarettes, uncomplicated; F64.8 Other gender identity disorders

== ENCOUNTER 2017-07-23 18:33 | Emergency (ER) | payer BC, OTHER ==
[~2017-07-23] VITALS: Ht 172.7 cm; Wt 73.9 kg
[~2017-07-23 18:33] MED LIST changes: +COZAAR 50 MG TA50 M2 PO; +EVISTA60 MG PO; +OXYBUTYNIN 5 MG5 M2 PO; +PROTONIX40 M1 PO; +ZOLOFT25 MG PO
[2017-07-23 19:10] LABS: ABSOLUTE NEUTROPHILS 13.3 thou/uL (1.4-8.2); BASOPHILS 0.4 % (0.0-2.0); EOSINOPHILS 0.4 % (0.0-3.0); HEMATOCRIT 42.9 % (42.0-52.0); HEMOGLOBIN 14.8 gm/dL (14.0-18.0); LYMPHOCYTES 8.4 % (24.0-44.0); MCH 31.1 pg (26.0-34.0); MCHC 34.4 g/dL (28.0-37.0); MCV 90.3 fL (80.0-100.0); MONOCYTES 3.2 % (1.0-8.0); PLATELET COUNT 243 thou/uL (150-400); POLYS 87.6 % (36.0-66.0); RBC 4.75 mil/uL (4.50-6.00); RDW 14.7 % (10.5-14.5); WBC 15.2 thou/uL (4.0-11.0)
[2017-07-23 19:20] LABS: CALCIUM 9.2 mg/dL (8.5-10.1); CREATININE 0.9 mg/dL (0.7-1.3); POTASSIUM 4.1 mmol/L (3.5-5.1)
[2017-07-23 19:26] LABS: ALBUMIN 3.2 g/dL (3.4-5.0); TOTAL BILIRUBIN 0.4 mg/dL (<0.1-1.0); TOTAL PROTEIN 6.4 g/dL (6.4-8.2)
[2017-07-23 19:35] LABS: URINE BILIRUBIN NEGATIVE (Negative); URINE BLOOD 3+ (Negative); URINE CLARITY CLEAR; URINE COLOR YELLOW; URINE GLUCOSE-RANDOM* NEGATIVE (Negative); URINE KETONES NEGATIVE (Negative); URINE LEUKOCYTES 2+ (Negative); URINE NITRITE NEGATIVE (Negative); URINE PROTEIN (DIPSTICK) 2+ (Negative); URINE SPECIFIC GRAVITY >= 1.030 (1.005-1.035); URINE UROBILINOGEN 0.2 E.U./dl (0.2-1.0)
[2017-07-23 19:44] LABS: SQUAMOUS 0-3 Few /LPF (0-3)
[2017-07-23 19:45] LABS: BACTERIA 1-9 Few /HPF (None Seen); CRYSTALS None Seen /LPF (None Seen); HYALINE CASTS 0-3 Few /LPF (None Seen); MUCUS >6 Heavy strn/LPF (None Seen); URINE RBC >20 Many /HPF (0-2); URINE WBC >25 Many /HPF (0-5); WBC CLUMPS Few (None Seen)
[2017-07-23] MEDS ORDERED: HYDROCODONE-AP1 EAC6 PO (19:52)
== END 2017-07-23 20:20 | disposition home or self-care (01) ==
LOC: ER 18:33
PROVIDERS: Physician Assistant
DX: R10.9 Unspecified abdominal pain (principal); G62.9 Polyneuropathy, unspecified; M06.9 Rheumatoid arthritis, unspecified; F17.210 Nicotine dependence, cigarettes, uncomplicated; Z87.442 Personal history of urinary calculi; Z88.8 Allergy status to other drugs, medicaments and biological substances

== ENCOUNTER 2017-07-24 22:21 | Emergency (ER) | payer BC, OTHER ==
[~2017-07-24] VITALS: Ht 172.7 cm; Wt 74.4 kg
--- NOTE | ~2017-07-24 | EKG ---
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
[2017-07-24 22:57] LABS: ABSOLUTE NEUTROPHILS 8.4 thou/uL (1.4-8.2); BASOPHILS 0.8 % (0.0-2.0); EOSINOPHILS 0.8 % (0.0-3.0); HEMATOCRIT 40.9 % (42.0-52.0); HEMOGLOBIN 13.9 gm/dL (14.0-18.0); LYMPHOCYTES 26.4 % (24.0-44.0); MCH 30.8 pg (26.0-34.0); MCV 90.7 fL (80.0-100.0); MONOCYTES 5.9 % (1.0-8.0); PLATELET COUNT 216 thou/uL (150-400); POLYS 66.1 % (36.0-66.0); RBC 4.51 mil/uL (4.50-6.00); RDW 14.9 % (10.5-14.5); WBC 12.7 thou/uL (4.0-11.0)
[2017-07-24 23:11] LABS: ANION GAP 5 mmol/L (7-16); BUN 14 mg/dL (7-18); CALCIUM 8.7 mg/dL (8.5-10.1); CHLORIDE 105 mmol/L (98-107); CO2 27 mmol/L (21-32); CREATININE 0.8 mg/dL (0.7-1.3); GLUCOSE 107 mg/dL (74-106); POTASSIUM 4.1 mmol/L (3.5-5.1); SODIUM 137 mmol/L (136-145)
[2017-07-24 23:13] LABS: APTT 25.8 Seconds (24.5-32.8); PROTIME 10.7 Seconds (9.3-11.4)
[2017-07-24 23:20] LABS: ALBUMIN 2.8 g/dL (3.4-5.0); MAGNESIUM 1.8 mg/dL (1.8-2.4); SGOT 18 U/L (15-37); SGPT 27 U/L (30-65); TOTAL BILIRUBIN 0.4 mg/dL (<0.1-1.0); TOTAL PROTEIN 5.9 g/dL (6.4-8.2); TROPONIN-I < 0.04 ng/mL (<0.06)
[2017-07-24 23:20] LABS: URINE BILIRUBIN NEGATIVE (Negative); URINE BLOOD 3+ (Negative); URINE CLARITY CLEAR; URINE COLOR YELLOW; URINE GLUCOSE-RANDOM* NEGATIVE (Negative); URINE KETONES NEGATIVE (Negative); URINE NITRITE-REFLEX NEGATIVE (Negative); URINE PROTEIN (DIPSTICK) 2+ (Negative); URINE SPECIFIC GRAVITY 1.015 (1.005-1.035); URINE UROBILINOGEN 0.2 E.U./dl (0.2-1.0)
[2017-07-24 23:26] LABS: URINE LEUKOCYTES-REFLEX 2+ (Negative)
[2017-07-24 23:27] LABS: AMP/METHAMP Negative (Negative); BARBITURATES Negative (Negative); BENZODIAZEPINES Negative (Negative); COCAINE Negative (Negative); METHADONE Negative (Negative); OPIATES POSITIVE (Negative); PCP Negative (Negative)
[2017-07-24 23:39] LABS: CASTS None Seen /LPF (None Seen); MUCUS 0-3 Light strn/LPF (None Seen); SQUAMOUS None Seen /LPF (0-3); URINE WBC-REFLEX 6-15 Few /HPF (0-5)
[2017-07-24 23:40] LABS: BACTERIA-REFLEX 1-9 Few /HPF (None Seen); CRYSTALS None Seen /LPF (None Seen)
[2017-07-25] MEDS ORDERED: ATIVAN0.5 MG PO (00:12)
[2017-07-25] MEDS ORDERED: TRAMADOL 50 MG50 MG PO (00:14)
[2017-07-25] MEDS ORDERED: PREDNISONE 20 M20 MG PO (00:14)
[2017-07-26] MEDS ORDERED: KEFLEX500 M2 PO (23:12)
[2017-07-26] MEDS ORDERED: NORCO 5-325 TA1 EACH PO (23:18)
== END 2017-07-25 00:45 | disposition home or self-care (01) ==
LOC: ER 22:21
PROVIDERS: Emergency Medicine
DX: R07.89 Other chest pain (principal); F41.9 Anxiety disorder, unspecified; M19.90 Unspecified osteoarthritis, unspecified site; R20.0 Anesthesia of skin; N20.0 Calculus of kidney; F17.210 Nicotine dependence, cigarettes, uncomplicated

== ENCOUNTER 2017-07-26 21:24 | Inpatient (IN) | payer BC, OTHER ==
[~2017-07-26] VITALS: Ht 172.7 cm; Wt 69.9 kg
--- NOTE | ~2017-07-26 | O ---
[facility] [place] [address] OPERATIVE REPORT Name: MAURILIO EM Room #: 349-I ADM IN M.R.#: [id number] Admission: 07/26/17 Attend Phys: Jr Spears MD Discharge: Date of : 65 Report #: [id number] THIS REPORT FOR: //name// CC: John Skaggs [facility] physician/PCP Jr Spears DATE OF SERVICE: 07/27/2017 PREOPERATIVE DIAGNOSES: Right-sided abdominal pain status post right ureteroscopy with laser ablation of the proximal ureteral stone and stent placement. POSTOPERATIVE DIAGNOSES: Right-sided abdominal pain status post right ureteroscopy with laser ablation of the proximal ureteral stone and stent placement. PROCEDURES: Cystoscopy with right ureteral stent removal, right retrograde pyelogram. SURGEON: John Skaggs M.D. ANESTHESIA: General. INDICATIONS: The patient is a 51-year-old transgender female who recently underwent ureteroscopy for right proximal ureteral stone. She is in the process of being scheduled for a stent removal. She has had significant pain and presented to the Emergency Room. She is admitted for retrograde pyelogram and possible stent removal. Risks, benefits and its complications have been discussed in detail. Risk of injury to kidney and/or ureter requiring immediate or delayed open surgery was discussed. She understands complications could occur, which may not have been foreseen or discussed. Of note, she is requesting an inordinate amount of pain medicine more than as usually required for such situations. DESCRIPTION OF PROCEDURE: After obtaining informed consent, she was brought to the operating room where general anesthetic was administered. She was prepped and draped in lithotomy position by the operating personnel under anesthesia supervision. The preliminary fluoroscopic images showed the stent to be well positioned with no stone fragments alongside the stent either in the kidney or along the ureter. The 21-Tunisian ACMI cystoscope was introduced under direct vision. The anterior urethra was normal. The prostatic urethra was short and obstructive. Upon entering the bladder, the bladder was smooth walled. No intrinsic lesions. Stent was seen emanating from the right ureteral orifice. I placed a Glidewire up into the kidney alongside the stent. I then grasped the stent and removed over the wire, placed an open-ended 5-Tunisian catheter and [address] [address] OPERATIVE REPORT Name: MAURILIO EM Room #: 349-I ADM IN ..#: [id number] Admission: 07/26/17 Attend Phys: Jr Spears MD Discharge: Date of : 65 Report #: [id number] removed the wire. Contrast was injected. There were no filling defects within the kidney. The ureter looked excellent. There was excellent drainage from the upper tract. At the conclusion of the procedure, there was excellent drainage from the kidney, although there was some small amount of residual contrast within the kidney only. I then drained the bladder, removed the cystoscope and she was transferred to the recovery room where she arrived in stable condition. <ELECTRONICALLY SIGNED> By: John Skaggs MD 07/28/17 0908 1728 1905 John Skaggs MD /nt
--- NOTE | ~2017-07-26 | HC ---
[facility] [place] [address] CONSULTATION Name: MAURILIO EM Room #: 349-I ADM IN M.R.#: [id number] Admission: 07/26/17 Attend Phys: Jr Spears MD Discharge: Date of : 65 Report #: [id number] THIS REPORT FOR: //name// CC: John [facility] physician/PCP Jr Spears CHIEF COMPLAINT: Right flank pain. HISTORY OF PRESENT ILLNESS: This patient is a very pleasant transgender male to female woman who presents to [facility] with right flank pain and dysuria. She recently underwent right ureteroscopy with laser ablation of a right renal stone and is in the process of arranging for stent removal under anesthesia. She would not consent to do this in the office. She reports urgency and frequency with some flank pain. ALLERGIES: BEE STINGS. No known drug allergies. ILLNESSES: GERD, renal calculus, chest wall pain, anxiety, lung nodule, rheumatoid arthritis. SOCIAL HISTORY: Noncontributory. REVIEW OF SYSTEMS: No shortness of breath or chest pain. PHYSICAL EXAMINATION: GENERAL: She is currently comfortable. VITAL SIGNS: Temperature 36.6, pulse 77, respirations 20, blood pressure 99/64. LUNGS: Clear. ABDOMEN: Soft. Urine culture less than 1000 colony forming units. LABORATORY DATA: White count 11,400, hemoglobin 14.4, hematocrit 42.2, platelets 218,000. Sodium 138, potassium 3.6, chloride 105, CO2 of 27, BUN 11, creatinine 0.7. Urine is slightly cloudy, 3+ blood, negative for nitrites, leukocyte esterase 1+. KUB shows the stent to be present. No stones identified. IMPRESSION: Right-sided discomfort. She does have an indwelling stent. PLAN: Right cystoscopy, right retrograde pyelogram and stent removal. Risks, benefits, complications have been discussed in detail. <ELECTRONICALLY SIGNED> By: John Skaggs MD 07/28/17 0908 0747 0919 John Skaggs MD /nt
[~2017-07-26 21:24] MED LIST changes: +ATIVAN0.5 MG PO
[2017-07-26 21:28] VITALS: BP 109/73
[2017-07-26 22:35] LABS: URINE BILIRUBIN NEGATIVE (Negative); URINE BLOOD 3+ (Negative); URINE CLARITY SL CLOUDY; URINE COLOR YELLOW; URINE GLUCOSE-RANDOM* NEGATIVE (Negative); URINE KETONES NEGATIVE (Negative); URINE LEUKOCYTES 1+ (Negative); URINE NITRITE NEGATIVE (Negative); URINE PROTEIN (DIPSTICK) 2+ (Negative); URINE UROBILINOGEN 0.2 E.U./dl (0.2-1.0)
[2017-07-26 22:41] LABS: BACTERIA 1-9 Few /HPF (None Seen); CASTS None Seen /LPF (None Seen); CRYSTALS None Seen /LPF (None Seen); SQUAMOUS 0-3 Few /LPF (0-3); URINE RBC >20 Many /HPF (0-2)
[2017-07-26 22:51] LABS: ABSOLUTE NEUTROPHILS 7.8 thou/uL (1.4-8.2); BASOPHILS 0.8 % (0.0-2.0); EOSINOPHILS 0.3 % (0.0-3.0); HEMATOCRIT 42.2 % (42.0-52.0); HEMOGLOBIN 14.4 gm/dL (14.0-18.0); LYMPHOCYTES 24.6 % (24.0-44.0); MCHC 34.1 g/dL (28.0-37.0); MCV 90.8 fL (80.0-100.0); MONOCYTES 6.1 % (1.0-8.0); PLATELET COUNT 218 thou/uL (150-400); POLYS 68.2 % (36.0-66.0); RBC 4.64 mil/uL (4.50-6.00); RDW 14.5 % (10.5-14.5); WBC 11.4 thou/uL (4.0-11.0)
[2017-07-26 23:02] LABS: CALCIUM 9.2 mg/dL (8.5-10.1); CREATININE 0.7 mg/dL (0.7-1.3); POTASSIUM 3.6 mmol/L (3.5-5.1)
[2017-07-26 23:10] VITALS: BP 132/71
[2017-07-26] MEDS ORDERED: KEFLEX500 M2 PO (23:12)
[2017-07-26] MEDS ORDERED: NORCO 5-325 TA1 EACH PO (23:18)
[2017-07-27] VITALS (7 sets, daily range): BP systolic 97–114; BP diastolic 57–83
[2017-07-28 04:29] VITALS: BP 105/65
[2017-07-28 08:00] VITALS: BP 112/76
[2017-07-28] MEDS ORDERED: FLOMAX0.4 MG PO (11:55)
[2017-07-28] MEDS ORDERED: TRAMADOL 50 MG50 MG PO (12:22)
[2017-07-28 12:46] VITALS: BP 112/76
[2017-07-28 14:36] VITALS: BP 112/76
== END 2017-07-28 14:31 | disposition home or self-care (01) | DRG 694 ==
LOC: ER 21:24 → 3W 23:50 → EROBS 23:50 → 3W 07-27 00:25
PROVIDERS: Emergency Medicine
DX: N20.1 Calculus of ureter (principal); N39.0 Urinary tract infection, site not specified; K21.9 Gastro-esophageal reflux disease without esophagitis; M06.9 Rheumatoid arthritis, unspecified; Z79.1 Long term (current) use of non-steroidal anti-inflammatories (NSAID); Z79.899 Other long term (current) drug therapy; Z91.030 Bee allergy status
CPT/HCPCS: 10779; 50010; 51620; 56674; 56815

== ENCOUNTER 2017-08-02 22:04 | Emergency (ER) | payer BC, OTHER ==
[~2017-08-02] VITALS: Ht 172.7 cm; Wt 69.8 kg
[~2017-08-02 22:04] MED LIST changes: +FLOMAX0.4 MG PO; +KEFLEX500 M2 PO
== END 2017-08-02 23:05 | disposition home or self-care (01) ==
LOC: ER 22:04
DX: S93.401A Sprain of unspecified ligament of right ankle, initial encounter (principal); M19.071 Primary osteoarthritis, right ankle and foot; G89.4 Chronic pain syndrome; M21.42 Flat foot [pes planus] (acquired), left foot; M21.41 Flat foot [pes planus] (acquired), right foot; F17.210 Nicotine dependence, cigarettes, uncomplicated; Z88.8 Allergy status to other drugs, medicaments and biological substances; X58.XXXA Exposure to other specified factors, initial encounter; Y93.89 Activity, other specified; Y92.89 Other specified places as the place of occurrence of the external cause; Y99.8 Other external cause status

== ENCOUNTER 2017-08-19 18:28 | Emergency (ER) | payer BC, OTHER ==
[~2017-08-19] VITALS: Ht 172.7 cm; Wt 72.6 kg
--- NOTE | ~2017-08-19 | EKG ---
[place] [address] [facility] [place] [address] ELECTROCARDIOGRAM REPORT Name: MAURILIO EM [facility] [id number] Admission: 08/19/17 Attend Phys: Discharge: 08/19/17 Date of : 65 Report #: [id number] THIS REPORT FOR: //name// [facility] ED Test Date: 2017-08-19 Test Time: 18:45:42 Pat Name: MAURILIO EM Department: Room: Gender: M Community Administrator: KF : 1965 Requested By: Yasmany Power Order Number: [id number] MD: Reji Ya Measurements Intervals [place] Rate: 76 P: 36 [place]: 121 QRS: 63 QRSD: 78 T: 67 QT: 372 QTc: 419 Interpretive Statements Sinus rhythm ST elev, probable normal early repol pattern Compared to ECG 07/24/2017 22:33:16 No significant change was found Electronically Signed On 08-20-2017 8:08:58 CDT by Reji Ya [email or web address] <ELECTRONICALLY SIGNED> By: Reji Ya MD, [facility] 08/20/17 0808 D: [id number] Reji Ya MD, FACC /EPI
[2017-08-19 19:50] LABS: ABSOLUTE NEUTROPHILS 9.7 thou/uL (1.4-8.2); BASOPHILS 0.2 % (0.0-2.0); HEMATOCRIT 41.4 % (42.0-52.0); LYMPHOCYTES 11.9 % (24.0-44.0); MCH 31.1 pg (26.0-34.0); MCHC 33.7 g/dL (28.0-37.0); MCV 92.4 fL (80.0-100.0); PLATELET COUNT 211 thou/uL (150-400); POLYS 83.9 % (36.0-66.0); RBC 4.49 mil/uL (4.50-6.00); RDW 14.8 % (10.5-14.5); WBC 11.6 thou/uL (4.0-11.0)
[2017-08-19 19:54] LABS: ANION GAP 7 mmol/L (7-16); BUN 14 mg/dL (7-18); CALCIUM 9.2 mg/dL (8.5-10.1); CHLORIDE 107 mmol/L (98-107); CO2 26 mmol/L (21-32); CREATININE 0.8 mg/dL (0.7-1.3); GLUCOSE 103 mg/dL (74-106); POTASSIUM 4.3 mmol/L (3.5-5.1); SODIUM 140 mmol/L (136-145)
[2017-08-19 20:02] LABS: TROPONIN-I < 0.04 ng/mL (<0.06)
[2017-08-19 21:10] LABS: AMP/METHAMP Negative (Negative); BARBITURATES Negative (Negative); BENZODIAZEPINES Negative (Negative); COCAINE Negative (Negative); METHADONE Negative (Negative); OPIATES Negative (Negative); PCP Negative (Negative)
[2017-08-19] MEDS ORDERED: ULTRAM 50MG TAB50 MG PO (22:46)
[2017-08-19] MEDS ORDERED: IBUPROFEN 600600 M1 PO (22:46)
== END 2017-08-19 23:20 | disposition home or self-care (01) ==
LOC: ER 18:28
PROVIDERS: Emergency Medicine
DX: R07.89 Other chest pain (principal); F17.210 Nicotine dependence, cigarettes, uncomplicated; Z88.8 Allergy status to other drugs, medicaments and biological substances; Z95.5 Presence of coronary angioplasty implant and graft

== ENCOUNTER 2017-09-12 19:07 | Emergency (ER) | payer BC, OTHER ==
[~2017-09-12] VITALS: Ht 172.7 cm; Wt 72.1 kg
[~2017-09-12 19:07] MED LIST changes: +ULTRAM 50MG TAB50 MG PO
[2017-09-12] MEDS ORDERED: CYCLOBENZAPRINE5 MG PO (19:32)
[2017-09-12] MEDS ORDERED: HYDROCODONE-AP1 EAC6 PO ×3 (19:32→20:44)
== END 2017-09-12 21:05 | disposition home or self-care (01) ==
LOC: ER 19:07
DX: S93.602A Unspecified sprain of left foot, initial encounter (principal); G62.9 Polyneuropathy, unspecified; F17.210 Nicotine dependence, cigarettes, uncomplicated; Z91.030 Bee allergy status; X58.XXXA Exposure to other specified factors, initial encounter; Y92.89 Other specified places as the place of occurrence of the external cause; Y93.89 Activity, other specified; Y99.8 Other external cause status

== ENCOUNTER 2017-09-14 16:55 | Emergency (ER) | payer BC, OTHER ==
[~2017-09-14] VITALS: Ht 172.7 cm; Wt 71.2 kg
--- NOTE | ~2017-09-14 | EKG ---
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
[~2017-09-14 16:55] MED LIST changes: +CYCLOBENZAPRINE5 MG PO
[2017-09-14 18:15] LABS: ABSOLUTE NEUTROPHILS 6.8 thou/uL (1.4-8.2); BASOPHILS 0.7 % (0.0-2.0); EOSINOPHILS 1.2 % (0.0-3.0); HEMOGLOBIN 14.3 gm/dL (14.0-18.0); LYMPHOCYTES 17.4 % (24.0-44.0); MCH 31.9 pg (26.0-34.0); MCHC 34.2 g/dL (28.0-37.0); MCV 93.5 fL (80.0-100.0); MONOCYTES 4.5 % (1.0-8.0); PLATELET COUNT 175 thou/uL (150-400); POLYS 76.2 % (36.0-66.0); RBC 4.49 mil/uL (4.50-6.00); RDW 14.5 % (10.5-14.5)
[2017-09-14 18:23] LABS: CALCIUM 8.7 mg/dL (8.5-10.1); CREATININE 0.7 mg/dL (0.7-1.3); POTASSIUM 3.9 mmol/L (3.5-5.1)
[2017-09-14 19:16] LABS: URINE BILIRUBIN NEGATIVE (Negative); URINE BLOOD NEGATIVE (Negative); URINE CLARITY CLEAR; URINE COLOR YELLOW; URINE GLUCOSE-RANDOM* NEGATIVE (Negative); URINE KETONES NEGATIVE (Negative); URINE LEUKOCYTES-REFLEX NEGATIVE (Negative); URINE NITRITE-REFLEX NEGATIVE (Negative); URINE PROTEIN (DIPSTICK) NEGATIVE (Negative); URINE UROBILINOGEN 0.2 E.U./dl (0.2-1.0)
== END 2017-09-14 19:49 | disposition home or self-care (01) ==
LOC: ER 16:55
PROVIDERS: Physician Assistant
DX: R42 Dizziness and giddiness (principal); F17.210 Nicotine dependence, cigarettes, uncomplicated

== ENCOUNTER 2017-09-26 22:23 | Emergency (ER) | payer BC, OTHER ==
[~2017-09-26] VITALS: Ht 172.7 cm; Wt 71.7 kg
[2017-09-26] MEDS ORDERED: MS CONTIN15 MG PO (22:46)
[2017-09-26 22:49] LABS: ABSOLUTE NEUTROPHILS 5.2 thou/uL (1.4-8.2); BASOPHILS 0.9 % (0.0-2.0); EOSINOPHILS 2.1 % (0.0-3.0); HEMATOCRIT 40.1 % (42.0-52.0); HEMOGLOBIN 13.8 gm/dL (14.0-18.0); LYMPHOCYTES 25.6 % (24.0-44.0); MCHC 34.5 g/dL (28.0-37.0); MCV 92.8 fL (80.0-100.0); MONOCYTES 5.7 % (1.0-8.0); PLATELET COUNT 228 thou/uL (150-400); POLYS 65.7 % (36.0-66.0); RBC 4.32 mil/uL (4.50-6.00); RDW 13.9 % (10.5-14.5); WBC 7.8 thou/uL (4.0-11.0)
[2017-09-26 22:54] LABS: CALCIUM 8.9 mg/dL (8.5-10.1); CREATININE 0.8 mg/dL (0.7-1.3); POTASSIUM 3.9 mmol/L (3.5-5.1)
[2017-09-26 22:58] LABS: URINE BILIRUBIN NEGATIVE (Negative); URINE BLOOD NEGATIVE (Negative); URINE CLARITY CLEAR; URINE COLOR YELLOW; URINE GLUCOSE-RANDOM* NEGATIVE (Negative); URINE KETONES NEGATIVE (Negative); URINE LEUKOCYTES-REFLEX NEGATIVE (Negative); URINE NITRITE-REFLEX NEGATIVE (Negative); URINE PROTEIN (DIPSTICK) NEGATIVE (Negative); URINE UROBILINOGEN 0.2 E.U./dl (0.2-1.0)
[2017-09-26] MEDS ORDERED: ANUCORT-HC25 MG RECTAL (23:54)
[2017-09-27] MEDS ORDERED: CIPRO500 MG PO (00:11)
[2017-09-27] MEDS ORDERED: FLAGYL500 MG PO (00:11)
== END 2017-09-27 00:38 | disposition home or self-care (01) ==
LOC: ER 22:23
PROVIDERS: Physician Assistant
DX: K52.9 Noninfective gastroenteritis and colitis, unspecified (principal); G62.9 Polyneuropathy, unspecified; M06.9 Rheumatoid arthritis, unspecified; F17.210 Nicotine dependence, cigarettes, uncomplicated; Z91.030 Bee allergy status

== ENCOUNTER 2018-01-13 15:38 | Inpatient (IN) | payer BC, OTHER ==
[~2018-01-13] VITALS: Ht 172.7 cm; Wt 68.9 kg
--- NOTE | ~2018-01-13 | HC ---
[facility] [place] [address] CONSULTATION Name: MANAVMAURILIO Room #: 350-P [facility] IN M.R.#: [id number] Admission: 01/13/18 Attend Phys: Juany Michaud MD Discharge: 01/17/18 Date of : 65 Report #: [id number] THIS REPORT FOR: //name// CC: [facility] physician/PCP Juany Michaud HISTORY OF PRESENT ILLNESS: The patient is a 52-year-old male who presents with left lower extremity weakness. The patient was seen and had come to the Emergency Room presenting with midsternal chest pain. When I saw the patient, the patient had presented with pain around the left elbow and then in the knee. The patient stated that he was unable to move his left leg in any way. Despite several diagnostic studies including an MRI of the head and x-ray of the ankle, a Doppler study of the left lower extremity and an x-ray of the knee without any significant abnormalities, the patient's symptoms persisted. The patient was also seen by Physical Therapy and because of concerns and discrepancies in evaluation of what the patient stated he was able to do and what he was observed to do, a Neurology consult was requested. PAST MEDICAL HISTORY: Gastroesophageal reflux. PAST SURGICAL HISTORY: Unremarkable. MEDICATIONS: Gabapentin 300 mg t.i.d. ALLERGIES: BEES AND BEESTINGS. PHYSICAL EXAMINATION: VITAL SIGNS: Temperature is 36.4, pulse rate 56, respiratory rate 16, blood pressure 116/73, bedside pulse oximetry 98% on room air. LABORATORY WORK: White blood cell count 9.3, hemoglobin 14.1, hematocrit 39.8, MCV 90, platelet count 204,000. Chemistry: Sodium 144, potassium 3.8, chloride 101, carbon dioxide 25, BUN 12, creatinine 0.7, GFR 118, glucose 91. Liver functions normal. NEUROLOGIC EXAMINATION: Cranial nerves 2-12 are grossly intact. Motor exam demonstrates symmetrical strength in the upper extremities and in the right lower extremity. The patient explained to me that he could not move the left lower extremity and had to manually move the left lower extremity in and out of bed; however, he was able to scoot the leg up in bed without any assistance. Reflex is symmetrical throughout. Plantar responses flexor. Coordination demonstrates no evidence of dysmetria. IMPRESSION AND PLAN: This patient has a history of left lower extremity weakness. I have ordered an MRI of the lumbar spine and pelvis to look for a more peripheral cause of the weakness. If nothing is found, then I would recommend physical therapy and [place] [address] CONSULTATION Name: MAURILIO EM Room #: 350-[facility] IN M.R.#: [id number] Admission: 01/13/18 Attend Phys: Juany Michaud MD Discharge: 01/17/18 Date of : 65 Report #: [id number] therapy. I thank you for your kind referral. <ELECTRONICALLY SIGNED> By: Julia Crowley DO 01/23/18 1155 1249 1956 Julia Crowley DO /nt
--- NOTE | ~2018-01-13 | EKG ---
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
--- NOTE | ~2018-01-13 | HC ---
[facility] [place] [address] CONSULTATION Name: MANAVMAURILIO LEZAMA Room #: 350-P [facility] IN M.R.#: [id number] Admission: 01/13/18 Attend Phys: Juany Michaud MD Discharge: 01/17/18 Date of : 65 Report #: [id number] THIS REPORT FOR: //name// CC: [facility] physician/PCP Juany Michaud CHIEF COMPLAINT: Right sacral insufficiency fracture. HISTORY OF PRESENT ILLNESS: This 52-year-old transgendered individual presents with various vague and generalized complaints, which included chest pain, left arm pain and numbness, low back pain and left lower extremity weakness. He has apparently had chronic back symptoms for 2-3 years. He has been evaluated in the past and treated conservatively. I am uncertain if he has had any significant problems with the left lower extremity. He notes he has been seen by another orthopedist, who suggested surgical procedures for the foot and ankle. He denies any recent accidents, injuries or falls and denies any history of significant metabolic bone disease. He notes his right low back and pelvis have been mildly uncomfortable for the past 2 years, but symptoms there are unchanged. He notes his recent symptoms and concerns with regard to the left lower extremity where a sense of weakness such that he could not ambulate effectively. Objectively, he is slender and appears generally fit and healthy, although he complains of some generalized areas of pain and weakness. He is moving both upper extremities and both lower extremities in a normal fashion. The left leg demonstrates good movement at the hip, knee and ankle. He notes some vague generalized discomfort, but this appears to be rather nonspecific and diffuse. Objective neurologic exam seems to be normal. He does note moderate generalized low back discomfort, but this is rather diffuse and nonspecific and rather mild. MRI of the lumbar spine reveals mild degenerative change at multiple levels, but no significant disk pathology and no evidence of disk herniation nor significant nerve root impingement. MRI of the pelvis reveals evidence of a minimal nondisplaced insufficiency fracture at the right superior sacrum. There is some degenerative disk change in the lower lumbar region. No other significant abnormalities are identified. In summary, I did not feel the minimal findings of right sacral insufficiency fracture are clinically significant. He is not having much discomfort there and certainly this would not contribute to his symptoms of left leg pain, numbness or weakness. He does have some chronic low back discomfort and this may be related to more of a chronic issue than an acute process. There is certainly no treatment necessary for this minor finding. I am uncertain why he is having his other symptoms, which have included left arm numbness and weakness, left chest wall pain and left lower extremity numbness and weakness. His current imaging and clinical findings do not suggest any significant structural problem in the back, which would contribute to these findings. Therefore, I do not think any interventive or aggressive treatment is necessary from an orthopedic standpoint. [address] [address] CONSULTATION Name: MAURILIO EM Room #: 350-P [facility] IN M.R.#: [id number] Admission: 01/13/18 Attend Phys: Juany Michaud MD Discharge: 01/17/18 Date of : 65 Report #: [id number] I think you can proceed with your plans for conservative management and discharge from the hospital whenever he seems medically stable. <ELECTRONICALLY SIGNED> By: John Mcgraw MD 01/22/18 1413 1859 0734 John Mcgraw MD /nt
[~2018-01-13 15:38] MED LIST changes: +ANUCORT-HC25 MG RECTAL; +CIPRO500 MG PO; +FLAGYL500 MG PO; +MS CONTIN15 MG PO
[2018-01-13 15:40] VITALS: BP 106/72
[2018-01-13 16:38] LABS: ABSOLUTE NEUTROPHILS 6.7 thou/uL (1.4-8.2); BASOPHILS 1.5 % (0.0-2.0); EOSINOPHILS 0.7 % (0.0-3.0); HEMATOCRIT 39.8 % (42.0-52.0); HEMOGLOBIN 14.1 gm/dL (14.0-18.0); LYMPHOCYTES 20.1 % (24.0-44.0); MCH 31.9 pg (26.0-34.0); MCHC 35.5 g/dL (28.0-37.0); MONOCYTES 6.1 % (1.0-8.0); PLATELET COUNT 204 thou/uL (150-400); POLYS 71.6 % (36.0-66.0); RBC 4.42 mil/uL (4.50-6.00); RDW 13.3 % (10.5-14.5); WBC 9.3 thou/uL (4.0-11.0)
[2018-01-13 17:07] LABS: ANION GAP 8 mmol/L (7-16); BUN 12 mg/dL (7-18); CHLORIDE 101 mmol/L (98-107); CO2 25 mmol/L (21-32); CREATININE 0.7 mg/dL (0.7-1.3); GLUCOSE 91 mg/dL (74-106); POTASSIUM 3.8 mmol/L (3.5-5.1); SODIUM 134 mmol/L (136-145)
[2018-01-13 17:16] LABS: ALBUMIN 3.4 g/dL (3.4-5.0); SGOT 21 U/L (15-37); SGPT 26 U/L (30-65); TOTAL BILIRUBIN 0.5 mg/dL (<0.1-1.0); TOTAL PROTEIN 6.5 g/dL (6.4-8.2); TROPONIN-I <0.06 ng/mL (<0.06)
[2018-01-13 20:00] VITALS: BP 113/75
[2018-01-13 20:30] VITALS: BP 114/78
[2018-01-14 00:03] VITALS: BP 110/76
[2018-01-14 02:10] LABS: CHOLESTEROL 120 mg/dL (<200); HDL CHOLESTEROL 49 mg/dL (>40); LDL CHOLESTEROL 66 mg/dL (<100); TC:HDL 2.4 Ratio (Not establshd); TRIGLYCERIDE 28 mg/dL (<150); TROPONIN-I <0.06 ng/mL (<0.06); VLDL 6 mg/dL (<40)
[2018-01-14 04:32] VITALS: BP 103/68
[2018-01-14 11:38] VITALS: BP 106/66
[2018-01-14 16:07] VITALS: BP 98/66
[2018-01-14 19:45] VITALS: BP 106/69
[2018-01-15 05:18] VITALS: BP 104/65
[2018-01-15 07:24] VITALS: BP 84/60
[2018-01-15 11:36] VITALS: BP 111/68
[2018-01-15 15:10] VITALS: BP 107/68
[2018-01-15 19:50] VITALS: BP 112/70
[2018-01-16 03:15] VITALS: BP 108/71
[2018-01-16 07:33] VITALS: BP 116/73
[2018-01-16] MEDS ORDERED: ASPIRIN325 PO (13:52)
[2018-01-16 14:01] VITALS: BP 116/73
[2018-01-16 16:20] VITALS: BP 114/72
[2018-01-16 19:45] VITALS: BP 106/67
[2018-01-16 20:05] VITALS: BP 159/81
[2018-01-17 03:40] VITALS: BP 104/55
[2018-01-17 08:00] VITALS: BP 107/73
[2018-01-17 13:14] VITALS: BP 116/73
[2018-01-17 13:48] VITALS: BP 116/73
== END 2018-01-17 16:21 | disposition home health service (06) | DRG 313 ==
LOC: ER 15:38 → EROBS 19:25 → 3W 19:25 → 4E 20:30 → 3W 20:38
PROVIDERS: Nurse Practitioner Acute Care; Physician Assistant
DX: R07.9 Chest pain, unspecified (principal); G62.9 Polyneuropathy, unspecified; R53.1 Weakness; M06.9 Rheumatoid arthritis, unspecified; K21.9 Gastro-esophageal reflux disease without esophagitis; Z60.2 Problems related to living alone; F41.9 Anxiety disorder, unspecified; Z87.442 Personal history of urinary calculi; Z88.8 Allergy status to other drugs, medicaments and biological substances; Z87.891 Personal history of nicotine dependence; Z79.82 Long term (current) use of aspirin; Z79.899 Other long term (current) drug therapy
CPT/HCPCS: 10879

== ENCOUNTER 2018-02-16 15:46 | Emergency (ER) | payer BC, OTHER ==
[~2018-02-16] VITALS: Ht 185.4 cm; Wt 81.7 kg
[~2018-02-16 15:46] MED LIST changes: +ASPIRIN325 PO
[2018-02-16] MEDS ORDERED: NAPROSYN500 MG PO (17:12)
[2018-02-16] MEDS ORDERED: ACETAMINOPHEN-1 EAC1 PO (17:12)
[2018-02-16] MEDS ORDERED: NORFLEX100 MG PO (17:12)
[2018-02-16 19:37] VITALS: BP 117/64
== END 2018-02-16 19:38 | disposition home or self-care (01) ==
LOC: ER 15:46
DX: S01.01XA Laceration without foreign body of scalp, initial encounter (principal); S13.8XXA Sprain of joints and ligaments of other parts of neck, initial encounter; T14.8XXA Other injury of unspecified body region, initial encounter; R20.2 Paresthesia of skin; R10.31 Right lower quadrant pain; R10.32 Left lower quadrant pain; M54.6 Pain in thoracic spine; R07.89 Other chest pain; F17.210 Nicotine dependence, cigarettes, uncomplicated; G62.9 Polyneuropathy, unspecified; M06.9 Rheumatoid arthritis, unspecified; Z91.030 Bee allergy status; Z87.442 Personal history of urinary calculi; W01.198A Fall on same level from slipping, tripping and stumbling with subsequent striking against other object, initial encounter; Y92.009 Unspecified place in unspecified non-institutional (private) residence as the place of occurrence of the external cause; Y93.89 Activity, other specified; Y99.8 Other external cause status

== ENCOUNTER 2018-07-23 16:19 | Emergency (ER) | payer BC, OTHER ==
[~2018-07-23] VITALS: Ht 177.8 cm; Wt 70.8 kg
[~2018-07-23 16:19] MED LIST changes: +ACETAMINOPHEN-1 EAC1 PO; +NORFLEX100 MG PO
[2018-07-23] MEDS ORDERED: MS CONTIN15 MG PO (16:46)
[2018-07-23 17:26] LABS: ABSOLUTE NEUTROPHILS 4.7 thou/uL (1.4-8.2); BASOPHILS 1.3 % (0.0-2.0); EOSINOPHILS 1.7 % (0.0-3.0); HEMATOCRIT 37.2 % (42.0-52.0); HEMOGLOBIN 12.7 gm/dL (14.0-18.0); LYMPHOCYTES 23.2 % (24.0-44.0); MCH 31.1 pg (26.0-34.0); MCHC 34.2 g/dL (28.0-37.0); MONOCYTES 6.8 % (1.0-8.0); PLATELET COUNT 223 thou/uL (150-400); RBC 4.08 mil/uL (4.50-6.00); RDW 14.2 % (10.5-14.5)
[2018-07-23 17:34] LABS: CALCIUM 8.3 mg/dL (8.5-10.1); CREATININE 0.7 mg/dL (0.7-1.3)
[2018-07-23] MEDS ORDERED: KEFLEX500 M1 PO (17:44)
[2018-07-23 18:12] VITALS: BP 100/61
== END 2018-07-23 18:13 | disposition home or self-care (01) ==
LOC: ER 16:19
PROVIDERS: Emergency Medicine
DX: L03.115 Cellulitis of right lower limb (principal); M25.561 Pain in right knee; G62.9 Polyneuropathy, unspecified; G89.29 Other chronic pain; M06.9 Rheumatoid arthritis, unspecified; F17.210 Nicotine dependence, cigarettes, uncomplicated; Z91.030 Bee allergy status

== ENCOUNTER 2018-09-18 22:26 | Emergency (ER) | payer BC, OTHER ==
[~2018-09-18] VITALS: Ht 172.7 cm; Wt 71.2 kg
[2018-09-18 22:56] LABS: ABSOLUTE NEUTROPHILS 6.2 thou/uL (1.4-8.2); BASOPHILS 1.1 % (0.0-2.0); EOSINOPHILS 1.5 % (0.0-3.0); HEMATOCRIT 40.1 % (42.0-52.0); HEMOGLOBIN 13.5 gm/dL (14.0-18.0); LYMPHOCYTES 21.5 % (24.0-44.0); MCH 30.7 pg (26.0-34.0); MCHC 33.7 g/dL (28.0-37.0); MCV 91.2 fL (80.0-100.0); MONOCYTES 6.6 % (1.0-8.0); PLATELET COUNT 207 thou/uL (150-400); POLYS 69.3 % (36.0-66.0); RDW 13.8 % (10.5-14.5); WBC 8.9 thou/uL (4.0-11.0)
[2018-09-18] MEDS ORDERED: B-12500 MCG PO (23:03)
[2018-09-18 23:09] LABS: ANION GAP 6 mmol/L (7-16); BUN 16 mg/dL (7-18); CALCIUM 8.6 mg/dL (8.5-10.1); CHLORIDE 107 mmol/L (98-107); CO2 28 mmol/L (21-32); CREATININE 0.7 mg/dL (0.7-1.3); GLUCOSE 92 mg/dL (74-106); POTASSIUM 3.8 mmol/L (3.5-5.1); SODIUM 141 mmol/L (136-145)
[2018-09-18 23:18] LABS: LIPASE 178 U/L (73-393); MAGNESIUM 1.9 mg/dL (1.8-2.4); TROPONIN-I <0.06 ng/mL (<0.06)
[2018-09-19 00:31] VITALS: BP 99/57
--- NOTE | 2018-09-19 07:35 | EKG ---
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 : 1965 Requested By: Juan Fan Order Number: [id number] MD: Reji Ya Measurements Intervals [place] Rate: 66 P: 27 [place]: 146 QRS: 45 QRSD: 84 T: 54 QT: 388 QTc: 407 Interpretive Statements Sinus rhythm Poor R wave progression Compared to ECG 02/20/2018 20:44:40 Sinus bradycardia no longer present Electronically Signed On 09-19-2018 7:34:55 CDT by Reji Ya [email or web address] ��������������������������������������������� <ELECTRONICALLY SIGNED> ���������������������������������������� By: Reji Ya MD, [facility] ��������������������������������������������� 09/19/18 0734 2239 38 Reji Ya MD, FACC /EPI
== END 2018-09-19 00:32 | disposition home or self-care (01) ==
LOC: ER 22:26
PROVIDERS: Emergency Medicine
DX: R11.2 Nausea with vomiting, unspecified (principal); R55 Syncope and collapse; F17.210 Nicotine dependence, cigarettes, uncomplicated; M06.9 Rheumatoid arthritis, unspecified; G62.9 Polyneuropathy, unspecified; Z91.030 Bee allergy status

== ENCOUNTER 2018-10-22 21:58 | Emergency (ER) | payer BC, OTHER ==
[~2018-10-22] VITALS: Ht 172.7 cm; Wt 73.5 kg
[~2018-10-22 21:58] MED LIST changes: +B-12500 MCG PO
[2018-10-22 23:06] LABS: ABSOLUTE NEUTROPHILS 5.9 thou/uL (1.4-8.2); BASOPHILS 0.8 % (0.0-2.0); EOSINOPHILS 1.9 % (0.0-3.0); HEMATOCRIT 37.9 % (42.0-52.0); LYMPHOCYTES 23.4 % (24.0-44.0); MCH 31.2 pg (26.0-34.0); MCHC 34.4 g/dL (28.0-37.0); MCV 90.7 fL (80.0-100.0); MONOCYTES 5.5 % (1.0-8.0); PLATELET COUNT 178 thou/uL (150-400); POLYS 68.4 % (36.0-66.0); RBC 4.17 mil/uL (4.50-6.00); RDW 14.1 % (10.5-14.5); WBC 8.6 thou/uL (4.0-11.0)
[2018-10-22 23:14] LABS: ANION GAP 9 mmol/L (7-16); BUN 9 mg/dL (7-18); CALCIUM 8.8 mg/dL (8.5-10.1); CHLORIDE 106 mmol/L (98-107); CO2 27 mmol/L (21-32); CREATININE 0.7 mg/dL (0.7-1.3); GLUCOSE 131 mg/dL (74-106); POTASSIUM 3.6 mmol/L (3.5-5.1); SODIUM 142 mmol/L (136-145)
[2018-10-22 23:23] LABS: TROPONIN-I <0.06 ng/mL (<0.06)
[2018-10-23 00:19] VITALS: BP 100/66
--- NOTE | 2018-10-25 17:23 | EKG ---
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1965 Requested By: Jermain Warner Order Number: [id number] MD: Getachew Scales Measurements Intervals [place] Rate: 59 P: 24 SD: 148 QRS: 18 QRSD: 87 T: 34 QT: 416 QTc: 413 Interpretive Statements Sinus rhythm Baseline wander Nonspecific ST-T wave changes Compared to ECG 09/18/2018 22:39:00 No significant difference Electronically Signed On 10-25-2018 17:23:00 CDT by Getachew Scales [email or web address] ��������������������������������������������� <ELECTRONICALLY SIGNED> ���������������������������������������� By: Getachew Scales MD ��������������������������������������������� 10/25/18 1723 2247 224 Getachew Scales MD /EPI
== END 2018-10-23 00:20 | disposition home or self-care (01) ==
LOC: ER 21:58
PROVIDERS: Nurse Practitioner
DX: R07.89 Other chest pain (principal); M06.9 Rheumatoid arthritis, unspecified; G62.9 Polyneuropathy, unspecified; Z87.442 Personal history of urinary calculi; Z91.030 Bee allergy status

== ENCOUNTER 2019-03-27 18:01 | Emergency (ER) | payer OTHER ==
[~2019-03-27] VITALS: Ht 172.7 cm; Wt 73.5 kg
[2019-03-27] MEDS ORDERED: KEFLEX500 M1 PO (18:34)
[2019-03-27] MEDS ORDERED: PREDNISONE 20 M20 MG PO (18:34)
[2019-03-27 19:45] VITALS: BP 134/68
== END 2019-03-27 19:46 | disposition home or self-care (01) ==
LOC: ER 18:01
DX: L20.9 Atopic dermatitis, unspecified (principal); M06.9 Rheumatoid arthritis, unspecified; F17.210 Nicotine dependence, cigarettes, uncomplicated; Z91.030 Bee allergy status